=== PATIENT | male | born 1985 | race Caucasian/White ===

== ENCOUNTER 2019-04-21 05:13 | Emergency (ER) | payer BC ==
[~2019-04-21] VITALS: Ht 177.8 cm; Wt 81.6 kg
[2019-04-21 05:20] VITALS: BP_SYST 119
[2019-04-21] MEDS ORDERED: KETOROLAC TROMETHAMINE 30 MG VIAL IVP ONE (05:45)
[2019-04-21] MEDS ORDERED: KETOROLAC TROMETHAMINE 30 MG VIAL IM ONE (06:00)
[2019-04-21] MEDS ORDERED: KETOROLAC TROMETHAMINE 60 MG/2 ML VIAL IM ONE (06:00)
[2019-04-21 07:36] VITALS: BP_SYST 119
== END 2019-04-21 07:36 | disposition home or self-care (01) ==
LOC: SED 05:13
DX: M54.5 Low back pain (principal); F17.200 Nicotine dependence, unspecified, uncomplicated
CPT/HCPCS: 72100; 72220; 96372; 99283; J1885 ×2